=== PATIENT | male | born 1970 | race Caucasian/White ===

== ENCOUNTER 2016-08-13 16:42 | Emergency (ER) | payer BC ==
[~2016-08-13 16:42] MED LIST: ABILIFY 10MG TA10 MG PO; CATAPRES 0.1MG0.1 MG PO; DEPAKENE PO; ESCITALOPRAM10 MG PO; KLONOPIN PO; KLONOPIN1 MG PO; PREDNISONE20 M1 PO; SYNTHROID0.075 MG/T PO; ZITHROMAX 250M250 MG PO
[2016-08-13] MEDS ORDERED: CLONAZEPAM2 MG PO (16:59)
[2016-08-13] MEDS ORDERED: CYCLOBENZAPRINE10 M1 (17:00)
[2016-08-13] MEDS ORDERED: DESYREL DIVIDO150 M1 (17:01)
[2016-08-13] MEDS ORDERED: VYVANSE50 MG (17:02)
[2016-08-13 19:06] VITALS: BP 123/81
== END 2016-08-13 19:17 | disposition home or self-care (01) ==
LOC: ED 16:42
DX: F41.9 Anxiety disorder, unspecified (principal); F43.10 Post-traumatic stress disorder, unspecified; I10 Essential (primary) hypertension

== ENCOUNTER 2017-08-16 19:47 | Emergency (ER) | payer MEDICAID ==
[~2017-08-16] VITALS: Ht 162.6 cm; Wt 93.2 kg
[~2017-08-16 19:47] MED LIST changes: +CLONAZEPAM2 MG PO; +CYCLOBENZAPRINE10 M1; +DESYREL DIVIDO150 M1; +VYVANSE50 MG
[2017-08-16] MEDS ORDERED: CLONAZEPAM2 MG PO (20:20)
[2017-08-16] MEDS ORDERED: VOLTAREN SR25 MG/TAB PO (20:21)
[2017-08-16] MEDS ORDERED: COZAAR 50MG50 MG/TAB PO (20:21)
[2017-08-16] MEDS ORDERED: SEPTRA DS 8001 TAB PO (20:43)
[2017-08-16 21:13] VITALS: BP 126/88
== END 2017-08-16 21:13 | disposition home or self-care (01) ==
LOC: ED 19:47
DX: S60.453A Superficial foreign body of left middle finger, initial encounter (principal); W45.8XXA Other foreign body or object entering through skin, initial encounter; Y92.007 Garden or yard of unspecified non-institutional (private) residence as the place of occurrence of the external cause; I10 Essential (primary) hypertension; E03.9 Hypothyroidism, unspecified
CPT/HCPCS: 90715

== ENCOUNTER 2017-09-10 00:33 | Emergency (ER) | payer MEDICAID ==
[~2017-09-10] VITALS: Ht 162.6 cm; Wt 90.9 kg
[~2017-09-10 00:33] MED LIST changes: +COZAAR 50MG50 MG/TAB PO; +SEPTRA DS 8001 TAB PO; +VOLTAREN SR25 MG/TAB PO
[2017-09-10] MEDS ORDERED: PHENERGAN 25 TA25 MG PO (01:25)
[2017-09-10 05:55] VITALS: BP 185/96
== END 2017-09-10 05:55 | disposition home or self-care (01) ==
LOC: ED 00:33
DX: G43.909 Migraine, unspecified, not intractable, without status migrainosus (principal); I10 Essential (primary) hypertension; F41.9 Anxiety disorder, unspecified
CPT/HCPCS: J1200; J1885; J2550; J7030